=== PATIENT | male | born 1945 | race Caucasian/White ===

== ENCOUNTER 2018-04-12 12:01 | Emergency (ER) | payer MEDICARE, BC ==
[~2018-04-12] VITALS: Ht 180.3 cm; Wt 72.6 kg
== END 2018-04-12 14:30 | disposition left against medical advice (07) ==
LOC: ER 12:06
DX: Z53.21 Procedure and treatment not carried out due to patient leaving prior to being seen by health care provider (principal)
CPT/HCPCS: A4663